=== PATIENT | male | born 1970 | race African-American/Black ===

== ENCOUNTER 2019-05-22 17:45 | Emergency (ER) | payer BC ==
[~2019-05-22] VITALS: Ht 188 cm; Wt 122.5 kg
[2019-05-22] MEDS ORDERED: METFORMIN (17:56)
[2019-05-22] MEDS ORDERED: LISINOPRIL (17:56)
--- NOTE | 2019-05-22 19:13 | NUR ---
RECEIVED HAND OFF AND SBAR FROM OUTGOING [facility] NURSING PROFESSOR PT ABHISHEK CHOW X 2 UP, BED AT LOWEST POSITION. MONITORED ACCORDINGLY
[2019-05-22] MEDS ORDERED: IV NORMAL SALINE 1000 ML BAG IV ONE (19:45)
[2019-05-22] MEDS ORDERED: IOHEXOL 300MG/ML 100 ML INFUS..BTL ONE (20:08)
[2019-05-22] MEDS ORDERED: IV NORMAL SALINE 250 ML IV ONE (20:08)
[2019-05-22] MEDS ORDERED: SWABABLE VALVE TRANSFER SET EA MC ONE (20:08)
[2019-05-22 20:23] LABS: BASOPHILS # (AUTO) 0.1 K/uL (0.0-8.0); EOSINOPHILS # (AUTO) 0.2 K/uL (0.0-0.7); EOSINOPHILS % (AUTO) 2.6 % (0.0-7.0); HEMATOCRIT 41.4 % (36.7-47.1); LYMPHOCYTES # (AUTO) 3.8 K/uL (20.0-40.0); LYMPHOCYTES % (AUTO) 48.1 % (20.5-51.5); MEAN CORPUSCULAR HEMOGLOBIN 29.8 uug (23.8-33.4); MEAN CORPUSCULAR HGB CONC 34 g/dL (32.5-36.3); MEAN CORPUSCULAR VOLUME 88.2 fL (73.0-96.2); MONOCYTES # (AUTO) 0.6 K/uL (2.0-10.0); MONOCYTES % (AUTO) 7.7 % (0.0-11.0); NEUTROPHILS # (AUTO) 3.2 K/uL (1.8-8.9); NEUTROPHILS % (AUTO) 40.6 % (38.5-71.5); PLATELET COUNT (AUTO) 291 K/uL (152-348); WHITE BLOOD COUNT (AUTO) 7.8 K/uL (3.6-10.2)
[2019-05-22 20:35] LABS: CREATININE 1.2 mg/dL (0.6-1.3); POTASSIUM 3.6 mmol/L (3.5-5.1)
[2019-05-22 20:42] LABS: BILIRUBIN,DIRECT 0.1 mg/dL (0.0-0.2); BILIRUBIN,TOTAL 0.3 mg/dL (0.2-1.0); TOTAL PROTEIN, SERUM 7.9 g/dL (6.4-8.2)
--- NOTE | 2019-05-22 20:46 | NUR ---
PT TRANSPORTED TO RADIOLOGY VIA GURNEY ACCOMPANIED BY BRY, ALONG WITH NAD. SIDERAILS UPX2, BED AT LOWEST POSITION IVF INFUSING WELL TO LEFT AC, 18G
--- NOTE | 2019-05-22 21:15 | NUR ---
PT BACK FROM CT VIA GURNEY, ACCOMPANIED BY TECH. CHOWX2 UP, BED AT LOWEST POSITION.
--- NOTE | 2019-05-22 23:26 | NUR ---
Patient discharged to home in stable conditon. Written and verbal after care instructions given. Patient verbalizes understanding of instructions.
[2019-05-22 23:27] VITALS: BP 127/73
== END 2019-05-22 23:10 | disposition home or self-care (01) ==
LOC: ER 17:49
DX: R10.9 Unspecified abdominal pain (principal); R07.81 Pleurodynia; E78.5 Hyperlipidemia, unspecified; E11.9 Type 2 diabetes mellitus without complications; I10 Essential (primary) hypertension; Z79.899 Other long term (current) drug therapy
CPT/HCPCS: 36415; 71260; 74177; 80048; 80076; 84484; 85025; 85651; 85730; 99284; Q9967; 70030-TC; A4663; J7030; J7050